=== PATIENT | female | born 1995 | race Caucasian/White ===

== ENCOUNTER 2017-06-20 09:51 | Emergency (ER) | payer OTHER ==
[~2017-06-20] VITALS: Ht 149.9 cm; Wt 46.0 kg
[~2017-06-20 09:51] MED LIST: BENTYL20 MG PO; ENDOCET 5-3251 EACH PO; FERROUS SULFAT325 MG PO; FLINTSTONES GU1 EACH PO; IBUPROFEN800 MG PO; PROMETHAZINE HC25 M1 PO; ZOFRAN ODT4 MG PO
[2017-06-20 10:18] LABS: HEMATOCRIT 38.2 % (36.0-46.0); HEMOGLOBIN 12.8 G/DL (11.9-15.5); MCH 30.7 PG (29.0-34.0); MCHC 33.5 G/DL (30.0-36.0); MCV 91.6 FL (83-99); PLATELET COUNT 341 K/uL (156-360); RBC DIS.WIDTH-CV 12.4 % (11.8-14.6); RBC DIS.WIDTH-SD 41.4 % (39-53); RED BLOOD COUNT 4.17 M/uL (3.80-5.20); WHITE BLOOD COUNT 11.3 K/uL (4.1-10.2)
[2017-06-20 11:28] LABS: ALBUMIN 4.7 G/DL (3.2-4.8); CHLORIDE 106 MEQ/L (99-109); SODIUM 139 MEQ/L (136-147); TOTAL BILIRUBIN 0.5 MG/DL (0.0-1.0)
[2017-06-20 11:33] LABS: ALKALINE PHOSPHATASE 59 IU/L (3-129); ALT (GPT) 11 IU/L (3-49); AST (GOT) 20 IU/L (2-34); CREATININE 0.6 MG/DL (0.6-1.3); GFR ESTIMATE (CALCULATED) > 59 mL/min/; GLUCOSE 121 mg/dL (70-99); LIPASE 14 U/L (1.0-51.0); TOTAL PROTEIN 7.7 G/DL (6.4-8.3); UREA NITROGEN (BUN) 12 mg/dL (9-23)
[2017-06-20 11:54] LABS: QUANTITATIVE HCG 37367.6 MIU/ML
[2017-06-20 13:21] LABS: APPEARANCE CLOUDY ((CLEAR)); BILIRUBIN NEGATIVE; BLOOD SMALL; COLOR YELLOW ((YELLOW)); GLUCOSE (STRIP) NEGATIVE; KETONES 20; LEUKOCYTES NEGATIVE; NITRITE POSITIVE; PROTEIN (STRIP) NEGATIVE; SPECIFIC GRAVITY 1.018 (1.000-1.030); UROBILINOGEN 0.2 MG/DL (0.2-1.0)
[2017-06-20 13:43] LABS: BACTERIA 3+ /HPF; EPITHELIAL CELLS RARE /HPF; MUCUS NONE SEEN /LPF; RED BLOOD CELLS RARE /HPF (0-5); UCUL ADDED? YES; WHITE BLOOD CELLS NONE SEEN /HPF (0-5)
[2017-06-20] MEDS ORDERED: KEFLEX500 MG PO (13:58)
[2017-06-20] MEDS ORDERED: ZOFRAN4 MG SL (13:58)
[2017-06-20 14:11] VITALS: BP 105/57
== END 2017-06-20 14:16 | disposition home or self-care (01) ==
LOC: EME 09:51
DX: O23.41 Unspecified infection of urinary tract in pregnancy, first trimester (principal); B96.20 Unspecified Escherichia coli [E. coli] as the cause of diseases classified elsewhere; O21.9 Vomiting of pregnancy, unspecified; O20.0 Threatened abortion; O99.332 Smoking (tobacco) complicating pregnancy, second trimester; F17.200 Nicotine dependence, unspecified, uncomplicated; Z3A.01 Less than 8 weeks gestation of pregnancy
CPT/HCPCS: 76705; 76801; 80053; 81003; 83690; 84702; 85027; 87077; 87086; 87186; 99281; 99285; J1200; J2405; J2765; J7030

== ENCOUNTER 2017-06-21 20:45 | Emergency (ER) | payer OTHER ==
[~2017-06-21] VITALS: Ht 149.9 cm; Wt 47.0 kg
[~2017-06-21 20:45] MED LIST changes: +KEFLEX500 MG PO; +ZOFRAN4 MG SL
[2017-06-21 20:53] VITALS: BP 99/66
== END 2017-06-21 21:27 | disposition left against medical advice (07) ==
LOC: EME 20:45
DX: O99.89 Other specified diseases and conditions complicating pregnancy, childbirth and the puerperium (principal); R31.9 Hematuria, unspecified; R11.0 Nausea; Z3A.08 8 weeks gestation of pregnancy; Z53.21 Procedure and treatment not carried out due to patient leaving prior to being seen by health care provider

== ENCOUNTER → 2017-07-03 | Outpatient (CLI) | payer OTHER ==
[~2017-07-03] VITALS: Ht 149.9 cm; Wt 45.0 kg
[2017-07-03 18:13] VITALS: BP 107/59
== END | disposition home or self-care (01) ==
LOC: IVINF 11:00
DX: Z34.82 Encounter for supervision of other normal pregnancy, second trimester (principal); O02.1 Missed abortion; Z67.11 Type A blood, Rh negative
CPT/HCPCS: 96372

== ENCOUNTER 2017-07-24 12:34 | Day surgery (SDC) | payer OTHER ==
[2017-07-24 13:00] VITALS: BP 111/72
[2017-07-24 13:38] LABS: BASOPHIL (%) 0.2 % (0-1); EOSINOPHIL (%) 0 % (0-5); HEMATOCRIT 38.3 % (36.0-46.0); HEMOGLOBIN 12.6 G/DL (11.9-15.5); IMMATURE GRANULOCYTE (%) 0.5 % (0.0-0.7); LYMPHOCYTE (%) 9.3 % (15-42); LYMPHOCYTE COUNT 1.6 K/uL (1.0-2.8); MCH 30.8 PG (29.0-34.0); MCHC 32.9 G/DL (30.0-36.0); MCV 93.6 FL (83-99); MONOCYTE (%) 4.9 % (3-12); MONOCYTE COUNT 0.9 K/uL (0-0.8); NEUTROPHIL (%) 85.1 % (45-76); NEUTROPHIL COUNT 14.8 K/uL (1.8-6.4); PLATELET COUNT 313 K/uL (156-360); RBC DIS.WIDTH-CV 13.2 % (11.8-14.6); RBC DIS.WIDTH-SD 45.7 % (39-53); RED BLOOD COUNT 4.09 M/uL (3.80-5.20); WHITE BLOOD COUNT 17.4 K/uL (4.1-10.2)
[2017-07-24] MEDS ORDERED: IBUPROFEN800 MG PO (14:44)
[2017-07-24 15:45] VITALS: BP 101/65
[2017-07-24 17:29] VITALS: BP 92/56
== END 2017-07-24 17:20 | disposition home or self-care (01) ==
LOC: SDC 12:34
PROVIDERS: Obstetrics & Gynecology Obstetrics
PROC: 10D17ZZ Extraction of Products of Conception, Retained, Via Natural or Artificial Opening (ICD-10-PCS; principal; 2017-07-24)
DX: O02.1 Missed abortion (principal); Z3A.01 Less than 8 weeks gestation of pregnancy; F17.210 Nicotine dependence, cigarettes, uncomplicated
CPT/HCPCS: 85025; 86850; 86870; 86900; 86901; 86905; 86920; 88305; J0330; J2250; J2788

== ENCOUNTER 2017-07-25 07:24 | Emergency (ER) | payer OTHER ==
[~2017-07-25] VITALS: Ht 149.9 cm; Wt 43.3 kg
[2017-07-25 08:13] LABS: BASOPHIL (%) 0.2 % (0-1); EOSINOPHIL (%) 0.1 % (0-5); HEMATOCRIT 36.2 % (36.0-46.0); HEMOGLOBIN 12.4 G/DL (11.9-15.5); IMMATURE GRANULOCYTE (%) 0.5 % (0.0-0.7); LYMPHOCYTE (%) 16.8 % (15-42); LYMPHOCYTE COUNT 2.1 K/uL (1.0-2.8); MCH 31.2 PG (29.0-34.0); MCHC 34.3 G/DL (30.0-36.0); MONOCYTE (%) 6.2 % (3-12); MONOCYTE COUNT 0.8 K/uL (0-0.8); NEUTROPHIL (%) 76.2 % (45-76); NEUTROPHIL COUNT 9.3 K/uL (1.8-6.4); PLATELET COUNT 307 K/uL (156-360); RBC DIS.WIDTH-CV 13.1 % (11.8-14.6); RBC DIS.WIDTH-SD 43.2 % (39-53); RED BLOOD COUNT 3.98 M/uL (3.80-5.20); WHITE BLOOD COUNT 12.2 K/uL (4.1-10.2)
[2017-07-25 08:26] LABS: D-DIMER ELISA < 150.00 ng/mLDDU (<230)
[2017-07-25 08:32] LABS: CHLORIDE 105 mEq/L (99-109); POTASSIUM 3.6 mEq/L (3.7-5.4); SODIUM 140 mEq/L (136-147)
[2017-07-25 08:34] LABS: GLUCOSE 101 mg/dL (70-99)
[2017-07-25 08:38] LABS: CREATININE 0.6 mg/dL (0.6-1.3); GFR ESTIMATE (CALCULATED) > 59 mL/min/
[2017-07-25 08:39] LABS: UREA NITROGEN (BUN) 14 mg/dL (9-23)
[2017-07-25 09:29] VITALS: BP 124/85
== END 2017-07-25 09:30 | disposition home or self-care (01) ==
LOC: EME 07:24
PROVIDERS: Emergency Medicine
DX: F41.9 Anxiety disorder, unspecified (principal); R07.89 Other chest pain; O03.9 Complete or unspecified spontaneous abortion without complication; Z98.890 Other specified postprocedural states; R06.02 Shortness of breath; Z3A.01 Less than 8 weeks gestation of pregnancy; F17.200 Nicotine dependence, unspecified, uncomplicated
CPT/HCPCS: 71045; 80048; 85025; 85379; 93005; 99281; 99284